=== PATIENT | female | born 1980 ===

== ENCOUNTER 2018-05-10 00:57 | Emergency (ER) | payer SELFPAY ==
[2018-05-10 01:15] VITALS: O2SAT 100
[2018-05-10] MEDS ORDERED: Sodium Chloride 0.9% 1,000 ML IV STA (01:34)
--- NOTE | 2018-05-10 01:36 | ED PDOC ---
Arrival/HPI - History of Present Illness Narrative History of Present Illness (Text): 05/10/18 01:37 37 y/o female, psychiatric history including anxiety, nkda, c/o chest pain x 2 days with headache. Mid sternal chest pain, on and off x 2 weeks, associated with frontal headache, no fall or trauma, no change in vision, no night sweat, no rash, no numbness or tingling, no palpitation, no urinary symptoms, no URI symptoms, no other medical or psychological complaints. <Frantz Michelle - Last Filed: 05/10/18 14:06> <Ilia Carney - Last Filed: 05/13/18 05:54> - General Chief Complaint: Anxiety Time Seen by Provider: 05/10/18 01:01 Past Medical History - Provider Review Nursing Documentation Reviewed: Yes - Infectious Disease Hx of Infectious Diseases: None - Cardiac Hx Hypertension: Yes - Psychiatric Hx Anxiety: Yes Hx Substance Use: No - Anesthesia Hx Anesthesia: No <Frantz Michelle - Last Filed: 05/10/18 14:06> Family/Social History - Physician Review Nursing Documentation Reviewed: Yes Family/Social History: Unknown Family HX Smoking Status: Current Some Days Smoker Hx Alcohol Use: No Hx Substance Use: No <Frantz Michelle - Last Filed: 05/10/18 14:06> Allergies/Home Meds <Frantz Michelle - Last Filed: 05/10/18 14:06> <Ilia Carney - Last Filed: 05/13/18 05:54> Allergies/Adverse Reactions: Allergies No Known Allergies Allergy (Unverified 05/12/18 07:39) Home Medications: Home Meds Medication Instructions Recorded Confirmed Alprazolam [Xanax] 0.5 mg PO PRN PRN 06/23/17 06/23/17 Alprazolam [Xanax] 0.5 mg PO PRN PRN 05/10/18 05/10/18 Review of Systems - Review of Systems Constitutional: absent: Fatigue, Fevers Eyes: absent: Vision Changes ENT: absent: Hearing Changes Respiratory: absent: SOB, Cough Cardiovascular: Chest Pain Gastrointestinal: absent: Abdominal Pain, Diarrhea, Nausea, Vomiting Musculoskeletal: absent: Arthralgias, Back Pain Skin: absent: Rash, Pruritis, Skin Lesions Neurological: absent: Headache, Dizziness Psychiatric: absent: Anxiety, Depression, Suicidal Ideation <Frantz Michelle Q - Last Filed: 05/10/18 14:06> Physical Exam Vital Signs Reviewed: Yes Vital Signs Temp Pulse Resp BP Pulse Ox 05/10/18 01:12 98.4 F 92 H 18 152/115 H 100 Temperature: Afebrile Blood Pressure: Hypertensive Pulse: Regular Respiratory Rate: Normal Appearance: Positive for: Well-Appearing, Non-Toxic, Comfortable Pain Distress: None Mental Status: Positive for: Alert and Oriented X 3 - Systems Exam Head: Present: Atraumatic, Normocephalic, Other (no temporal artery tenderness). No: Tenderness, Contusion, Swelling, Ecchymosis, Abrasion, Laceration Pupils: Present: PERRL Extroacular Muscles: Present: EOMI Conjunctiva: Present: Normal Ears: Present: NORMAL TM, Normal Canal. No: Erythema Mouth: Present: Moist Mucous Membranes Pharnyx: No: ERYTHEMA, EXUDATE, TONSILS ENLARGED Nose (External): Present: Atraumatic. No: Abrasion, Contusion, Laceration Nose (Internal): Present: Normal Inspection, No Active Bleeding. No: Rhinorrhe a, Septal Deviation, Septal Hematoma, Epistaxis Neck: Present: Normal Range of Motion, Trachea Midline. No: MIDLINE TENDERNESS, Paraspinal Tenderness, Lymphadenopathy Respiratory/Chest: Present: Clear to Auscultation, Good Air Exchange. No: Respiratory Distress, Accessory Muscle Use Cardiovascular: Present: Regular Rate and Rhythm, Normal S1, S2. No: Murmurs Abdomen: No: Tenderness, Distention, Peritoneal Signs, Rebound, Guarding Back: Present: Normal Inspection Upper Extremity: Present: Normal Inspection. No: Cyanosis, Edema Lower Extremity: Present: Normal Inspection. No: Edema Neurological: Present: GCS=15, CN II-XII Intact, Speech Normal, Motor Func Grossly Intact, Gait Normal, Memory Normal Skin: Present: Warm, Dry, Normal Color. No: Rashes Lymphatic: No: Cervical Adenopathy, Axillary Adenopathy Psychiatric: Present: Alert, Oriented x 3, Normal Insight, Normal Concentration <Frantz Michelle Q - Last Filed: 05/10/18 14:06> Vital Signs Temp Pulse Resp BP Pulse Ox 05/10/18 03:54 83 17 117/81 100 05/10/18 01:12 98.4 F 92 H 18 152/115 H 100 <Ilia Carney - Last Filed: 05/13/18 05:54> Medical Decision Making ED Course and Treatment: 05/10/18 01:37 -Labs -EKG -CXR -IVF/toradol/pepcid/reglan -Observe and reassess 05/10/18 02:24 -Urine hcg is negative -EKG: Sinus Tachycardia @ 101 BPM, no ST elevation or depression, T wave inversion lead III -Chest xray: no active disease -Labs show no acute findings except K+ 3.5 (potassium chloride 20meq po ordered). -Dimer is 278, CTA chest ordered -Trop is negative -Case discussed with the ER attending Dr. Carney with labs/radiology result discussed, he would follow up on the pending labs and radiology studies. - RAD Interpretation Radiology Orders: [place] Radiologist: Chest xray: Date of service: 05/10/2018 HISTORY: medical clearance COMPARISON: No prior. FINDINGS: LUNGS: No active pulmonary disease. PLEURA: No significant pleural effusion identified, no pneumothorax apparent. CARDIOVASCULAR: Normal. OSSEOUS STRUCTURES: No significant abnormalities. VISUALIZED UPPER ABDOMEN: Normal. OTHER FINDINGS: None. IMPRESSION: No active disease. [place] Radiologist Official CTA chest: Date of service: 05/10/2018 PROCEDURE: CT Chest with contrast (Pulmonary Angiogram) HISTORY: chest pain x 2 days, elevated dimer, r/o pe COMPARISON: None available. TECHNIQUE: Axial computed tomography images were obtained of the chest in the pulmonary arterial phase of enhancement. Coronal and sagittal reformatted images were created and reviewed. Intravenous contrast dose: 100 cc Omnipaque 350. Mean Hounsfield value in the main pulmonary artery: 244.79 Radiation dose: Total exam DLP = 442.41 mGy-cm. This CT exam was performed using one or more of the following dose reduction techniques: Automated exposure control, adjustment of the mA and/or kV according to patient size, and/or use of iterative reconstruction technique. FINDINGS: PULMONARY ARTERIES: Unremarkable. No pulmonary embolism. AORTA: No acute findings. No thoracic aortic aneurysm. LUNGS: Unremarkable. No nodule, mass or pulmonary consolidation. PLEURAL SPACES: Unremarkable. No effusion or pneumothorax. HEART: Unremarkable. No cardiomegaly. No significant pericardial effusion. LYMPH NODES: No lymphadenopathy. BONES, CHEST WALL: Unremarkable. No fracture or destructive lesion OTHER FINDINGS: Small hiatal hernia, distal esophageal thickening. Findings may represent esophagitis. IMPRESSION: Unremarkable CT pulmonary angiogram. No pulmonary embolus. Findings in the lower esophagus suggestive but not diagnostic of esophagitis. Casing Trimmer: Radiologist - EKG Interpretation EKG Interpretation (Text): 05/10/18 01:38 -Sinus Tachycardia @ 101 BPM, no ST elevation or depression, T wave inversion lead III Interpreted by ED Physician: Yes Type: 12 lead EKG <Frantz Michelle - Last Filed: 05/10/18 14:06> ED Course and Treatment: 05/10/18 04:09 CTA Chest Impression: No demonstrated pulmonary embolism or arterial dissection. 05/10/18 04:13 Case discussed with medical auditor medicare contact specialist, who is aware and agree with plan. Paged house physician. 05/10/18 04:[address] Dwyer, house physician, who is aware and agree with plan. Accepts pt in to hospitalist service. Pt will go to Telemetry observation. 05/10/18 04:56 - Lab Interpretations Lab Results: 05/10/18 01:45 05/10/18 01:45 Lab Results 05/10/18 01:45: Sodium 137, Potassium 3.5 L, Chloride 106, Carbon Dioxide 22, Anion Gap 12, BUN 12, Creatinine 0.6 L, Est GFR ( Amer) > 60, Est GFR (Non-Af Amer) > 60, Random Glucose 93, Calcium 9.1, Magnesium 1.7, Total Bi lirubin 0.4, AST 55 H, ALT 33, Alkaline Phosphatase 62, Lactate Dehydrogenase 572, Total Creatine Kinase 959 H, CK-MB (CK-2) 4.9 H, CK-MB (CK-2) % Cancelled, Troponin I < 0.01, Total Protein 7.3, Albumin 4.0, Globulin 3.3, Al bumin/Globulin Ratio 1.2 05/10/18 01:45: D-Dimer, Quantitative 278 H 05/10/18 01:45: WBC 9.2, RBC 4.38, Hgb 12.1, Hct 38.2, MCV 87.2, MCH 27.6, MCHC 31.7, RDW 14.4, Plt Count 311, MPV 9.6, Gran % 59.7, Lymph % (Auto) 33.7, [place] % (Auto) 4.7, Eos % (Auto) 1.7, Baso % (Auto) 0.2, Gran # 5.47, Lymph # (Auto) 3.1, [place] # (Auto) 0.4, Eos # (Auto) 0.2, Baso # (Auto) 0.02 I have reviewed the lab results: Yes - RAD Interpretation Radiology Orders: 05/10/18 01:40 CHEST PORTABLE [RAD] Stat 05/10/18 02:21 ANGIO CHEST PE PROTOCOL [CT] Stat Casing Trimmer: Radiologist - Medication Orders Current Medication Orders: Sodium Chloride (Sodium Chloride 0.9%) 1,000 mls @ 100 mls/hr IV .Q10H [facility] Last Admin: 05/10/18 03:45 Dose: 100 mls/hr eMAR Start Stop Document 05/10/18 03:45 IT (Rec: 05/10/18 03:45 IT [facility] [id number] Intravenous Solution Start Date 05/10/18 Start Time 03:45 Discontinued Medications Famotidine (Pepcid) 20 mg IVP STAT STA Stop: 05/10/18 01:36 Last Admin: 05/10/18 02:18 Dose: 20 mg IVP Administration Document 05/10/18 02:18 IT (Rec: 05/10/18 02:18 IT [facility] [id number] Charges for Administration # of IVP Administrations 1 Sodium Chloride (Sodium Chloride 0.9%) 1,000 mls @ 999 mls/hr IV .Q1H1M STA Stop: 05/10/18 02:34 Last Admin: 05/10/18 02:17 Dose: 999 mls/hr eMAR Start Stop Document 05/10/18 02:17 IT (Rec: 05/10/18 02:18 IT [facility] [id number][place] Intravenous Solution Start Date 05/10/18 Start Time 02:17 Ketorolac Tromethamine (Toradol) 30 mg IVP STAT STA Stop: 05/10/18 01:36 Last Admin: 05/10/18 02:18 Dose: 30 mg MAR Pain Assessment Document 05/10/18 02:18 IT (Rec: 05/10/18 02:19 IT [facility] [id number] Pain Reassessment Is this a pain reassessment? No Sleep Is patient sleeping during reassessment? No Presence of Pain Presence of Pain Yes IVP Administration Document 05/10/18 02:18 IT (Rec: 05/10/18 02:19 IT [facility] [id number]) Charges for Administration # of IVP Administrations 1 Metoclopramide HCl (Reglan) 10 mg IVP STAT STA Stop: 05/10/18 01:36 Last Admin: 05/10/18 02:18 Dose: 10 mg IVP Administration Document 05/10/18 02:18 IT (Rec: 05/10/18 02:18 IT [facility] [id number]) Charges for Administration # of IVP Administrations 1 Potassium Chloride (K-Dur 20 Meq Er Tab) 20 meq PO STAT STA Stop: 05/10/18 02:23 Last Admin: 05/10/18 03:46 Dose: 20 meq <Ilia Carney - Last Filed: 05/13/18 05:54> - PA / HEALTH DATA ANALYST / Resident Statement NASIMA has reviewed & agrees with the documentation as recorded. <Frantz Michelle - Last Filed: 05/10/18 14:06> - PA / HEALTH DATA ANALYST / Resident Statement NASIMA has reviewed & agrees with the documentation as recorded. NASIMA has examined the patient and agrees with the treatment plan. <Ilia Carney - Last Filed: 05/13/18 05:54> Disposition/Present on Arrival - Present on Arrival Any Indicators Present on Arrival: No History of DVT/PE: No History of Uncontrolled Diabetes: No Urinary Catheter: No History of Decub. Ulcer: No History Surgical Site Infection Following: None - Disposition Have Diagnosis and Disposition been Completed?: Yes Disposition Time: 02:25 <Frantz Michelle - Last Filed: 05/10/18 14:06> - Present on Arrival Any Indicators Present on Arrival: No History of DVT/PE: No History of Uncontrolled Diabetes: No Urinary Catheter: No History of Decub. Ulcer: No History Surgical Site Infection Following: None - Disposition Have Diagnosis and Disposition been Completed?: Yes Disposition Time: 04:26 Patient Plan: Observation <Ilia Carney - Last Filed: 05/13/18 05:54> - Disposition Diagnosis: Chest pain Disposition: AGAINST MEDICAL ADVICE Condition: STABLE Discharge Instructions (ExitCare): Chest Pain (ED)
[2018-05-10 02:04] LABS: BASO # 0.02 K/mm3 (0.0-2.0); BASO % 0.2 % (0.0-3.0); EOS # 0.2 (0.0-0.7); EOS % 1.7 % (1.5-5.0); GRAN # 5.47 (1.4-6.5); GRAN % 59.7 % (50.0-68.0); HEMOGLOBIN 12.1 g/dL (12.0-16.0); LYMPH # 3.1 (1.2-3.4); LYMPH % 33.7 % (22.0-35.0); MEAN CELL VOLUME 87.2 fl (80.0-105.0); MEAN CORPUSCULAR HEMOGLOBIN 27.6 pg (25.0-35.0); MEAN CORPUSCULAR HGB CONC 31.7 g/dl (31.0-37.0); MEAN PLATELET VOLUME 9.6 fl (7.0-11.0); MONO # 0.4 (0.1-0.6); MONO % 4.7 % (1.0-6.0); RBC 4.38 10^6/uL (3.5-6.1); RED CELL DISTRIBUTION WIDTH 14.4 % (11.5-14.5); WHITE BLOOD COUNT 9.2 10^3/ul (4.5-11.0)
[2018-05-10 02:08] LABS: ALB/GLOB RATIO 1.2 (1.1-1.8); ALT/SGPT 33 U/L (7-56); AST/SGOT 55 U/L (14-36); BLOOD UREA NITROGEN 12 mg/dL (7-21); CALCIUM 9.1 mg/dL (8.4-10.5); GFR NON-AFRICAN AMERICAN > 60
[2018-05-10 02:19] LABS: TROPONIN I < 0.01 ng/mL
[2018-05-10] MEDS ORDERED: Potassium Chloride 20 mEq ER Tab PO STA (02:22)
[2018-05-10 02:30] LABS: CK-MB 4.9 ng/mL (0.0-3.6)
[2018-05-10] MEDS ORDERED: Sodium Chloride 0.9% 1,000 ML IV SCH (02:30)
[2018-05-10] MEDS ORDERED: Iohexol 350 MG/100 ML VIAL ONE (02:49)
[2018-05-10 03:55] VITALS: RESP 17
[2018-05-10 05:33] VITALS: BP 122/72; PULSE 82; TEMP 98.2
--- NOTE | 2018-05-10 05:46 | CP.PCM.PN ---
Subjective - Date & Time of Evaluation Date of Evaluation: 05/10/18 Time of Evaluation: 05:43 - Subjective Subjective: NIGHT FLOAT NOTE FOR HOSPITALIST TEAM Moni Bradford D.O. PGY-1 PT REQUEST TO LEAVE AMA Resident paged by ED staff regarding patient who was intially admitted to hospitalist service, however subsequently requested to leave ER against medical advice. Pt reports that all symptoms of chest pressure or pain have completely resolved without residual effects. Symptoms of anxiety had resolved as well. The patient is clinically sober, free from distracting injury, appears to have intact insight and judgment and reason and in my opinion has the capacity to make decisions. Pt presented with atypical chest pain, I have verbalized my concerns, pt has verbalized an understanding of my concerns. Pt informed of risk of leaving AMA including recurrence of chest pain, arrhythmia, pericardial effusion, endocarditis, pneumothorax, disability and . Pt explained alternatives to treatment including symptom control and close monitoring. Pt refused to be admitted to hospital. Pt instructed to visit any ER if condition worsens. Pt had no follow-up questions following discussion. She denies fevers, chills, headache, dizziness, chest pain, palpitations, shortness of breath, diaphoresis, nausea, vomiting, constipation, diarrhea. Objective - Vital Signs/Intake and Output Vital Signs (last 24 hours): Temp Pulse Resp BP Pulse Ox 98.2 F 82 17 122/72 100 05/10/18 05:32 05/10/18 05:32 05/10/18 05:32 05/10/18 05:32 05/10/18 05:32 - Medications Medications: Current Medications Sodium Chloride (Sodium Chloride 0.9%) 1,000 mls @ 100 mls/hr IV .Q10H [facility] Last Admin: 05/10/18 03:45 Dose: 100 mls/hr - Labs Labs: 05/10/18 01:45 05/10/18 01:45 - Constitutional Appears: Well, Non-toxic, No Acute Distress - Head Exam Head Exam: ATRAUMATIC, NORMAL INSPECTION - Eye Exam Eye Exam: EOMI, Normal appearance - ENT Exam ENT Exam: Mucous Membranes Moist, Normal Exam - Respiratory Exam Respiratory Exam: Clear to Ausculation Bilateral, NORMAL BREATHING PATTERN - Cardiovascular Exam Cardiovascular Exam: REGULAR RHYTHM, +S1, +S2 - GI/Abdominal Exam GI & Abdominal Exam: Normal Bowel Sounds - Extremities Exam Extremities Exam: Normal Capillary Refill, Normal Inspection - Back Exam Back Exam: NORMAL INSPECTION - Neurological Exam Neurological Exam: Alert, Awake, CN II-XII Intact, Oriented x3 - Psychiatric Exam Psychiatric exam: Normal Affect, Normal Mood - Skin Skin Exam: Dry, Warm
--- NOTE | 2018-05-10 09:23 | CARD ---
APPROVED REPORT Date of service: 05/10/2018 EKG Measurement Heart [id number] <Conclusion> Sinus tachycardia Nonspecific ST abnormality LAD
--- NOTE | 2018-05-10 10:15 | CT ---
Date of service: 05/10/2018 PROCEDURE: CT Chest with contrast (Pulmonary Angiogram) HISTORY: chest pain x 2 days, elevated dimer, r/o pe COMPARISON: None available. TECHNIQUE: Axial computed tomography images were obtained of the chest in the pulmonary arterial phase of enhancement. Coronal and sagittal reformatted images were created and reviewed. Intravenous contrast dose: 100 cc Omnipaque 350. Mean Hounsfield value in the main pulmonary artery: 244.79 Radiation dose: Total exam DLP = 442.41 mGy-cm. This CT exam was performed using one or more of the following dose reduction techniques: Automated exposure control, adjustment of the mA and/or kV according to patient size, and/or use of iterative reconstruction technique. FINDINGS: PULMONARY ARTERIES: Unremarkable. No pulmonary embolism. AORTA: No acute findings. No thoracic aortic aneurysm. LUNGS: Unremarkable. No nodule, mass or pulmonary consolidation. PLEURAL SPACES: Unremarkable. No effusion or pneumothorax. HEART: Unremarkable. No cardiomegaly. No significant pericardial effusion. LYMPH NODES: No lymphadenopathy. BONES, CHEST WALL: Unremarkable. No fracture or destructive lesion OTHER FINDINGS: Small hiatal hernia, distal esophageal thickening. Findings may represent esophagitis. IMPRESSION: Unremarkable CT pulmonary angiogram. No pulmonary embolus. Findings in the lower esophagus suggestive but not diagnostic of esophagitis. Concordant results (preliminary interpretation) provided by [facility]. Procedure Completed: 03:33 Preliminary Report: Dictated and Authenticated: 04:07. Final Interpretation: 10:13.
--- NOTE | 2018-05-10 13:31 | RAD ---
Date of service: 05/10/2018 HISTORY: medical clearance COMPARISON: No prior. FINDINGS: LUNGS: No active pulmonary disease. PLEURA: No significant pleural effusion identified, no pneumothorax apparent. CARDIOVASCULAR: Normal. OSSEOUS STRUCTURES: No significant abnormalities. VISUALIZED UPPER ABDOMEN: Normal. OTHER FINDINGS: None. IMPRESSION: No active disease.
== END 2018-05-10 05:33 | disposition left against medical advice (07) ==
LOC: ED 00:57 → MERGE 00:57 → ERH 04:15 → UNDOADMOB 04:15
DX: R07.9 Chest pain, unspecified (principal); I10 Essential (primary) hypertension; F17.210 Nicotine dependence, cigarettes, uncomplicated
CPT/HCPCS: 71045; 71275; 80053; 82550; 82553; 83615; 83735; 84484; 85025; 85378; 93005; 96374; 96375; 99284; J1885; J2765; J7030; Q9967

== ENCOUNTER 2018-06-25 00:42 | Emergency (ER) | payer MEDICAID ==
[2018-06-25 01:13] VITALS: BP 133/112; PULSE 95; RESP 18; TEMP 98; O2SAT 100; BMI 30.9
--- NOTE | 2018-06-25 01:34 | ED PDOC ---
Arrival/HPI - General Chief Complaint: Cough, Cold, Congestion Time Seen by Provider: 06/25/18 01:24 Historian: Patient - History of Present Illness Narrative History of Present Illness (Text): 06/25/18 01:33 Tracey Mccann is a 38 year old female, whose past medical history includes anxiety, who presents to the Emergency department complaining of sore throat. Patient states she has been experiencing sore throat, generalized malaise, and subjective fever since yesterday. Patient also report some abdominal cramping with nausea, vomiting, and diarrhea. Patient denies any fchest pain, shortness of breath, urinary symptoms, back pain, neck pain, headache, dizziness, or any other complaints. Symptom Onset: Gradual Symptom Course: Unchanged Activities at Onset: Light Context: Home Past Medical History - Provider Review Nursing Documentation Reviewed: Yes - Infectious Disease Hx of Infectious Diseases: None - Cardiac Hx Cardiac Disorders: No - Pulmonary Hx Respiratory Disorders: No - Neurological Hx Neurological Disorder: No - HEENT Hx HEENT Disorder: No - Renal Hx Renal Disorder: No - Endocrine/Metabolic Hx Endocrine Disorders: No - Hematological/Oncological Hx Blood Disorders: No - Integumentary Hx Dermatological Disorder: No - Musculoskeletal/Rheumatological Hx Musculoskeletal Disorders: No - Gastrointestinal Hx Gastrointestinal Disorders: No - Genitourinary/Gynecological Hx Genitourinary Disorders: No - Psychiatric Hx Psychophysiologic Disorder: Yes Hx Anxiety: Yes Hx Substance Use: No - Surgical History Hx Section: Yes (4) - Anesthesia Hx Anesthesia: No Family/Social History - Physician Review Nursing Documentation Reviewed: Yes Family/Social History: Unknown Family HX Smoking Status: Never Smoked Hx Alcohol Use: Yes Hx Substance Use: No Allergies/Home Meds Allergies/Adverse Reactions: Allergies No Known Allergies Allergy (Unverified 05/12/18 07:39) Home Medications: Home Meds Medication Instructions Recorded Confirmed Alprazolam [Xanax] 0.5 mg PO PRN PRN 06/23/17 06/23/17 Alprazolam [Xanax] 0.5 mg PO PRN PRN 05/10/18 05/10/18 Review of Systems - Physician Review All systems were reviewed & negative as marked: Yes - Review of Systems Constitutional: Fevers (+subjective fever), Other (+generalized malaise) Eyes: Normal ENT: Sore Throat Respiratory: Normal. absent: SOB, Cough Cardiovascular: Normal. absent: Chest Pain Gastrointestinal: Abdominal Pain, Diarrhea, Nausea, Vomiting Genitourinary Female: Normal. absent: Dysuria, Frequency, Hematuria, Urine Output Changes Musculoskeletal: Normal. absent: Back Pain, Neck Pain Skin: Normal. absent: Rash Neurological: Normal. absent: Headache, Dizziness Endocrine: Normal Hemo/Lymphatic: Normal Psychiatric: Normal Physical Exam Vital Signs Reviewed: Yes Vital Signs Temp Pulse Resp BP Pulse Ox 06/25/18 01:12 98.0 F 95 H 18 133/112 H 100 Temperature: Afebrile Blood Pressure: Normal Pulse: Regular Respiratory Rate: Normal Appearance: Positive for: Well-Appearing, Non-Toxic, Comfortable Pain Distress: None Mental Status: Positive for: Alert and Oriented X 3 - Systems Exam Head: Present: Atraumatic, Normocephalic Pupils: Present: PERRL Extroacular Muscles: Present: EOMI Conjunctiva: Present: Normal Ears: Present: Normal, NORMAL TM, Normal Canal. No: Erythema, TM Bulging, Fluid, TM Perf Mouth: Present: Moist Mucous Membranes Pharnyx: Present: ERYTHEMA (Erythema to posterior pharynx and tonsils). No: EXUDATE, TONSILS ENLARGED, Peritonsilar Swelling, Uvular Deviation, Muffled/Hoarse Voice, Strider, Soft Palate/Uvular Edema Nose (External): Present: Atraumatic Nose (Internal): Present: Normal Inspection Neck: Present: Normal Range of Motion Respiratory/Chest: Present: Clear to Auscultation, Good Air Exchange. No: Respiratory Distress, Accessory Muscle Use Cardiovascular: Present: Regular Rate and Rhythm, Normal S1, S2. No: Murmurs Abdomen: No: Tenderness, Distention, Peritoneal Signs Back: Present: Normal Inspection Upper Extremity: Present: Normal Inspection. No: Cyanosis, Edema Lower Extremity: Present: Normal Inspection. No: Edema Neurological: Present: GCS=15, CN II-XII Intact, Speech Normal Skin: Present: Warm, Dry, Normal Color. No: Rashes Psychiatric: Present: Alert, Oriented x 3, Normal Insight, Normal Concentration Medical Decision Making ED Course and Treatment: 06/25/18 01:33 Impression: 38 year old female complaining of sore throat, generalized malaise, subjective fever, abdominal cramps, nausea, vomiting, and diarrhea. Plan: -- Labs -- Rapid strep, rapid influenza -- Urinalysis -- IV fluids -- Reassess and disposition Progress Notes: 06/25/18 02:32 Pt refused labworks and complete evaluation. Will given rx for amoxcillin for pharyngitis. The patient declines to have further medical evaluation and treatment and wishes to leave the Emergency Department. This action is against my medical advice to the patient, and with informed refusal. The patient was told that evaluation and treatment are necessary and a full explanation of the rationale was given. The risks of leaving were explained to the patient and include, but are not limited to, worsening of known or currently unknown conditions, permanent disability and from undiagnosed or untreated conditions The patient has the capacity to make this informed decision and understands the clinical situation and my explanation of the risks of leaving. The patient voluntarily accepts these risks, and a signed AMA form documenting our conversation was obtained. The patient was given the opportunity to ask questions and reconsider. The patient was encouraged to return to the Emergency Department at any time for further care. - Scribe Statement The provider has reviewed the documentation as recorded by the Shamir Smith Provider Scribe Attestation: All medical record entries made by the Jeromeibadriane were at my direction and personally dictated by me. I have reviewed the chart and agree that the record accurately reflects my personal performance of the history, physical exam, medical decision making, and the department course for this patient. I have also personally directed, reviewed, and agree with the discharge instructions and disposition. Disposition/Present on Arrival - Present on Arrival Any Indicators Present on Arrival: No History of DVT/PE: No History of Uncontrolled Diabetes: No Urinary Catheter: No History of Decub. Ulcer: No History Surgical Site Infection Following: None - Disposition Have Diagnosis and Disposition been Completed?: Yes Diagnosis: Pharyngitis, Abdominal pain Disposition: AGAINST MEDICAL ADVICE Disposition Time: 02:31 Condition: STABLE Prescriptions: Amoxicillin [Amoxil 500 mg Cap] 500 mg PO TID #21 cap Forms: [employer] (Yoruba)
[2018-06-25] MEDS ORDERED: Sodium Chloride 0.9% 1,000 ML IV STA (01:37)
== END 2018-06-25 02:25 | disposition left against medical advice (07) ==
LOC: ED 00:42
DX: J02.9 Acute pharyngitis, unspecified (principal); R10.9 Unspecified abdominal pain